=== PATIENT | male | born 1965 | race Caucasian/White ===

== ENCOUNTER 2019-05-12 09:34 | Outpatient (CLI) | payer MEDICAID ==
[2019-05-12 12:21] LABS: CALCIUM 8.2 mg/dL (8.5-10.3); CREATININE 1.1 mg/dL (0.6-1.2)
[2019-05-12 12:31] LABS: HB2 TOTAL 14.9 g/dL; HEMOGLOBIN A1C 0.91 g/dL; HEMOGLOBIN A1C % 7.7 % (4.6-6.2)
[2019-05-15 12:43] LABS: CREATININE,URINE 137.3 mg/dL; PROTEIN/CREATININE RATIO,URINE 0.2 (<=0.2)
== END 2019-05-12 23:59 | disposition home or self-care (01) ==
LOC: LAB.N 09:34
PROVIDERS: ATTEND Family Medicine
DX: E11.9 Type 2 diabetes mellitus without complications (principal); R06.09 Other forms of dyspnea
CPT/HCPCS: 36415; 80048; 82043; 82570; 83036; 83880; 84156

== ENCOUNTER 2019-05-15 10:36 | Outpatient (CLI) | payer MEDICAID ==
--- NOTE | 2019-05-16 03:55 | XRAY Report ---
Reason: LUMBAR RADICULOPATHY Procedure Date: 05/15/2019 Accession Number: [id number] / [id number] Procedure: XRN - Lumbar Spine Complete CPT Code: Final Report FULL RESULT: EXAM: LUMBOSACRAL SPINE RADIOGRAPHY EXAM DATE: 05/15/2019 11:32 AM. CLINICAL HISTORY: LUMBAR RADICULOPATHY. COMPARISONS: KNEE 3 VIEW BILAT 05/15/2019 11:30 AM. TECHNIQUE: 5 views. FINDINGS: Alignment: Normal. No spondylolisthesis or scoliosis. Bones: Five [id number] lumbar vertebral bodies are present. No fractures or bone lesions. Disks: Mild disk height loss is visualized in the mid and upper lumbar spine. Mild endplate sclerosis and osteophytosis is noted. Facets: Mild sclerosis and hypertrophy noted in the lower lumbar facet joints. Sacroiliac Joints: Unremarkable. Soft Tissues: Normal. The visualized bowel gas pattern is normal. IMPRESSION: 1. No evidence of acute pathology in the lumbar spine. 2. Mild multilevel degenerative disk disease primarily in the mid and upper lumbar spine. 3. Moderate lower lumbar facet arthropathy. RADIA
--- NOTE | 2019-05-16 10:46 | XRAY Report ---
Reason: KNEE PAIN Procedure Date: 05/15/2019 Accession Number: [id number] / [id number] Procedure: XRN - Knee 3 View BILAT CPT Code: Final Report FULL RESULT: EXAMS: 1. Right Knee Radiography 2. Left Knee Radiography EXAM DATE:05/15/2019 11:32 AM. CLINICAL HISTORY:KNEE PAIN. COMPARISON: None. TECHNIQUE: 3 views each. FINDINGS: Right Knee: Bones: Normal. No fractures or bone lesions. Joints: Small effusion. Spurring of tibial spines and lateral tibial plateau. Mild narrowing of patellofemoral joint space. Soft Tissues: Normal. No soft tissue swelling. Left Knee: Bones: Normal. No fractures or bone lesions. Joints: Small effusion. Superior patellar spurring. Mild narrowing of medial compartment height. Tibial spine and intercondylar notch spurring. Patellofemoral joint space narrowing. Soft Tissues: Normal. No soft tissue swelling. IMPRESSION: 1. Small bilateral knee joint effusions. 2. Mild left greater than right knee joint degenerative changes. RADIA
== END 2019-05-15 10:37 | disposition home or self-care (01) ==
LOC: DI.N 10:36
PROVIDERS: ATTEND Family Medicine
DX: M51.36 Other intervertebral disc degeneration, lumbar region (principal); M47.816 Spondylosis without myelopathy or radiculopathy, lumbar region; M17.0 Bilateral primary osteoarthritis of knee; M25.462 Effusion, left knee; M25.461 Effusion, right knee
CPT/HCPCS: 72110

== ENCOUNTER 2019-06-02 10:02 | Outpatient (CLI) | payer MEDICAID | END 2019-06-02 23:59 | disposition home or self-care (01) | LOC: LAB.N 10:02 | PROVIDERS: ATTEND Family Medicine | DX: I11.0 Hypertensive heart disease with heart failure (principal); I50.9 Heart failure, unspecified | CPT/HCPCS: 36415; 83880 ==

== ENCOUNTER 2019-06-06 08:00 | Outpatient (CLI) | payer MEDICAID ==
[2019-06-06 17:19] LABS: ALBUMIN 4.1 g/dL (3.2-5.5); ALBUMIN/GLOBULIN RATIO 1.1 (1.0-2.2); BILIRUBIN,TOTAL 0.8 mg/dL (0.2-1.0); CALCIUM 8.9 mg/dL (8.5-10.3); TOTAL PROTEIN 7.7 g/dL (6.7-8.2)
== END 2019-06-06 23:59 | disposition home or self-care (01) ==
LOC: LAB.N 08:00
PROVIDERS: ATTEND Family Medicine
DX: I48.91 Unspecified atrial fibrillation (principal)
CPT/HCPCS: 36415; 80053

== ENCOUNTER 2019-06-30 07:00 | Outpatient (CLI) | payer MEDICAID ==
[2019-06-30 12:55] LABS: HGB - HEMOGLOBIN 15.8 g/dL (14.0-18.0); MEAN CORPUSCULAR HEMOGLOBIN 29.5 pg (27.0-31.0); MEAN CORPUSCULAR HGB CONC 31.8 g/dL (32.0-36.0); MEAN CORPUSCULAR VOLUME 92.9 fL (80.0-94.0); MEAN PLATELET VOLUME 10.5 fL (7.4-11.4); RED BLOOD COUNT 5.35 10^6/uL (4.70-6.10); RED CELL DISTRIBUTION WIDTH 13.6 % (12.0-15.0); WHITE BLOOD COUNT 8.7 x10^3/uL (4.8-10.8)
[2019-06-30 13:21] LABS: CALCIUM 8.8 mg/dL (8.5-10.3)
== END 2019-06-30 23:59 | disposition home or self-care (01) ==
LOC: LAB.WCP 07:00
PROVIDERS: ATTEND Family Medicine
DX: R06.09 Other forms of dyspnea (principal); I50.9 Heart failure, unspecified
CPT/HCPCS: 36415; 80048; 83880; 85027

== ENCOUNTER 2019-08-01 12:55 | Outpatient (CLI) | payer MEDICAID | END 2019-08-01 12:56 | disposition short-term general hospital (02) | LOC: EMS 12:55 | PROVIDERS: ATTEND Surgery | DX: R51 Headache (principal); R55 Syncope and collapse; R09.89 Other specified symptoms and signs involving the circulatory and respiratory systems | CPT/HCPCS: A0425; A0429; A0999 ==

== ENCOUNTER 2019-08-09 08:46 | Outpatient (CLI) | payer MEDICAID ==
[2019-08-09 12:03] LABS: CALCIUM 8.6 mg/dL (8.5-10.3); CREATININE 1.1 mg/dL (0.6-1.2)
== END 2019-08-09 23:59 | disposition home or self-care (01) ==
LOC: LAB.WCP 08:46
PROVIDERS: ATTEND Nurse Practitioner
DX: I48.0 Paroxysmal atrial fibrillation (principal)
CPT/HCPCS: 36415; 80048

== ENCOUNTER 2019-08-15 13:06 | Outpatient (CLI) | payer MEDICAID ==
--- NOTE | 2019-08-15 13:37 | SLEEP CARE CONSULTATION ---
Information from patient questionnaire entered by Laura Vallejo. I have reviewed and concur with the information entered by Laura Vallejo. This document represents the service I personally performed and the decisions made by me, Sahara Andrade MD, [facility]. History of Present Illness Service Date and Time: 08/15/2019 1306 Reason for Visit: New patient, Previously diagnosed sleep apnea Chief Complaint: reports: Other (To see if sleep apnea is the root cause for A- Fib) Duration of Symptoms: 27 years Usual bedtime: 10-11 pm Time it takes to fall asleep: couple of minutes or longer Snores at night: Yes Observed to quit breathing while asleep: Yes Sleeps alone due to snoring: No Number of times waking at night: couple times Reasons for waking at night: reports: Pain, Bathroom Toss, Turn, or Twitch while sleeping: Yes Recalls having dreams: Yes Usually gets out of bed at: 8:30 - 9 am Feels refreshed in the morning: Yes Morning headache: Yes Sleepy or fatigued during the day: Yes Ever fallen asleep while driving: No Takes day naps: Yes Dreams during day naps: Yes Prior sleep studies: Yes Year and Where: 1993 and 2008 in [place], [place] Additional HPI information: I had the pleasure of seeing Mr. Barone today regarding the possibility of him having a sleep disorder. As you know, he is a 53 year old gentleman who was diagnosed with the sleep-disordered breathing at about 21 years and underwent a uvulopalatopharyngoplasty. He reported some improvement afterward. There was no follow up sleep study. Recently, he developed atrial fibrillation. He was cardioverted but it recurred. Now, he is in and out of it. According to his girlfriend, he snores loudly and quits breathing. He feels sleepy during the day. - Parasomnia Symptoms Ever been unable to move upon waking from sleep: No Ever felt weak in the knees when startled or emotional: No Bothered by creepy, crawly, restless sensations in legs: No Problems with memory or concentration: No Subjective Initial [place] Sleepiness Scale score: 12 (in 2019) Past Medical History Past Medical History: reports: Hypertension, Congestive Heart Failure, Diabetes, Arthritis, Gout, Arrythmia, Anxiety, Depression Social History The patient's occupation is a Not Employed. Patient is Single and lives in [place]. Have you smoked in the past 12 months: No Alcohol use: Yes Alcohol amount and frequency: not often Caffeine use: Yes Family History Family history of sleep disordered breathing: Yes Allergies and Home Medications Drug allergies reviewed: Yes Home medication list reviewed: Yes Review of Systems Weight loss over past 5 years: 15 Cardiovascular: reports: high blood pressure, palpitations, chest pain, irregular heart rate or pulse, leg or foot swelling Respiratory: reports: shortness of breath, wheeze, chronic cough Gastrointestinal: denies: heartburn, difficulty swallowing, nausea, vomitting, diarrhea, abdominal pain, other Urinary: denies: incontinence, frequency, urgency, impotence, other Neurological: reports: headaches, gait or balance problems, fainting or unconsciousness Psychiatric: reports: anxiety, depression Ear/Nose/Throat: reports: dry mouth/throat, injury to nose, tonsillectomy Endocrine: reports: sluggishness Musculoskeletal: reports: joint pain, neck pain, back pain, joint swelling, muscle pain or cramping, mobility problems Physical Exam Height: 6 ft 2 in Weight: 325 lb Body Mass Index: 41.7 BMI Classification: Morbidly Obese Neck circumference: 18 Impression and Plan IMPRESSION: 1. Obstructive Sleep Apnea-Hypopnea Syndrome, as previously diagnosed and treated with uvulopalatopharyngoplasty. However, he continues to have symptoms and now also paroxysmal atrial fibrillation. Therefore, obstructive sleep apnea-hypopnea will need to be effectively treated. Narrow oropharynx and obesity are common predisposing factors for obstructive sleep apnea-hypopnea syndrome. Pathophysiology of sleep-disordered breathing was discussed. I recommend proceeding to polysomnography to confirm the diagnosis and to assess severity. If he has significant sleep disordered breathing, a manual CPAP titration study will also be performed to find the optimal treatment pressure. Home sleep apnea test (HSAT) is not appropriate because of underlying cardiac arrhythmia and several other comorbidities. Plan: 1. Schedule polysomnography + manual CPAP titration study 2. Avoid long distance driving or when feeling sleepy. 3. Avoid alcohol, sedative and muscle relaxant around bedtime. 4. Attempt to lose weight. 5. Return in 1 to 2 weeks after the study to discuss results and initiate therapy. Visit Type: In Office Patient Location: Office Other Participants: Spouse/Significant Other Location of Provider: Office Time Spent with Patient (minutes): 15 Provider Statement: I spent 100% of the Face to Face Visit with the patient with greater than 50% spent counseling the patient and coordination of care.
== END 2019-08-15 13:07 | disposition home or self-care (01) ==
LOC: SC 13:06
PROVIDERS: ATTEND Internal Medicine Pulmonary Disease
DX: G47.33 Obstructive sleep apnea (adult) (pediatric) (principal); I48.0 Paroxysmal atrial fibrillation; G47.10 Hypersomnia, unspecified; R06.83 Snoring; G47.8 Other sleep disorders; E11.9 Type 2 diabetes mellitus without complications; I10 Essential (primary) hypertension; E66.01 Morbid (severe) obesity due to excess calories; Z68.41 Body mass index [BMI] 40.0-44.9, adult
CPT/HCPCS: 99203; 99212

== ENCOUNTER 2019-09-06 20:36 | Outpatient (CLI) | payer MEDICAID | END 2019-09-06 20:37 | disposition home or self-care (01) | LOC: SC 20:36 | PROVIDERS: ATTEND Internal Medicine Pulmonary Disease | DX: G47.33 Obstructive sleep apnea (adult) (pediatric) (principal); E66.01 Morbid (severe) obesity due to excess calories; Z68.41 Body mass index [BMI] 40.0-44.9, adult | CPT/HCPCS: 95810 ==

== ENCOUNTER 2019-09-13 10:38 | Outpatient (CLI) | payer MEDICAID ==
[2019-09-13 11:41] VITALS: BP 140/80
--- NOTE | 2019-09-13 11:41 | SLEEP CARE CONSULTATION ---
Information from patient questionnaire entered by Gabrielle Franco. I have reviewed and concur with the information entered by Gabrielle Franco. This document represents the service I personally performed and the decisions made by me, Lizzy Nixon RN, MSN, [employer]. History of Present Illness Service Date and Time: 09/13/2019 1038 Accompanied by: Spouse Initial [place] Sleepiness Scale score: 12 (in 2020) Current [place] Sleepiness Scale score: 7 Additional HPI information: MARLENA MORRISSEY returns with spouse for follow up and results of the recently performed polysomnography. I explained the pathophysiology behind obstructive sleep apnea. We then spent quite a bit of time discussing different treatment options. For mild obstructive sleep apnea, surgery and oral appliance are alternatives to nasal CPAP therapy but in moderate or severe cases, nasal CPAP is the most effective and reliable treatment. I reviewed the impact of weight changes on sleep apnea and strongly recommended losing weight. After some discussion, the patient opted to go with the nasal CPAP therapy. Nasal autoCPAP set at [id number] will be ordered with rationale explained. A manual titration study will be ordered if unable to find optimal pressure with office adjustments. I explained how CPAP machine works with sample devices RespirLime&Tonic Dreamstation and trip.me [id number] and what to expect when using the machine. Using CPAP every night in order to get used to it was emphasized. Patient advised to put CPAP mask on before getting into bed so as not to fall asleep without CPAP. To assist acclimation to CPAP use, it could also be used for a short time during day while reading or watching TV. The patient was instructed to call the CPAP supplier to discuss any mechanical problem that may occur. If the mask given is uncomfortable or is difficult to keep on through the night even with adjustment, contact the CPAP supplier as many will replace with another mask style if notified before 30 days. If snoring or perceives is not getting enough air or too much air from the machine, notify this office. AASM patient education PAP tips reviewed and given to patient. Patient counseled not drink alcohol less than 4 hours before bedtime as it can increase snoring and apnea. Patient was cautioned about risks of drowsy driving until sleepiness symptoms resolve. Patient does not drive. Sleep Study - Results Type of Sleep Study: Polysomnography Prior sleep studies: Yes Year and Where: [facility] 2019 Polysomnography/Home Sleep Study results: The quality of the study is good. The patient had normal sleep efficiency. Despite moderate sleep fragmentation, the sleep architecture was normal as well. Respiratory monitoring showed severe obstructive sleep apnea-hypopnea (AHI = 52.3) associated with frequent arousals, oxyhemoglobin desaturation and moderate hypoxia (matthew oxygen saturation of 74%). Baseline oxygen saturation was normal. The respiratory events occurred independently of sleep stage and body position (supine AHI = 34.5; non-supine = 74.56). Snore was light in intensity. There was no significant periodic leg movement of sleep. Cardiac rhythm was normal sinus rhythm without significant arrhythmia. No abnormal behavior (parasomnia) observed during the night. Allergies and Home Medications Home medication list reviewed: No (lisinopril increased to 10mg, stopped metoprolol started diltiazem) Physical Exam Blood Pressure: 140/80 Heart Rate: 74 O2 Saturation: 98 Height: 6 ft 2 in Weight: 327 lb 12.8 oz Body Mass Index: 42.0 BMI Classification: Morbidly Obese Impression and Plan 1. Obstructive Sleep Apnea-Hypopnea Syndrome, severe, with lowest oxygen saturation of 74%. Obviously this is the cause of the patients symptoms of unrefreshed sleep, and excessive daytime sleepiness. Positive pressure therapy could benefit his atrial fibrillation, hypertension, congestive heart failure. As mentioned above, the patient will be started on nasal autoCPAP therapy with pressure set at 5-15 cmH2 O. An urgent set up will be ordered due to medical history. A manual titration study will be completed if unable to find optimal treatment pressure with office adjustments. Compliance guidelines also reviewed. A copy of compliance guidelines will be given for reference at check out. Because the apnea is more severe non- supine, I instructed to avoid sleeping non supine and elevated his head of bed 30 degrees to reduce apnea risk. * Nasal auto CPAP therapy, pressure at 5-15 cm H2O. * Attempt to lose weight. * Avoid alcohol consumption near bedtime. * Avoid non supine sleep until using CPAP. * The patient is again cautioned about driving until sleepiness completely resolves. * Return one month after CPAP obtained. I will assess response to therapy and compliance at that time. Visit Type: In Office Time Spent with Patient (minutes): 35 Provider Statement: I spent 100% of the Face to Face Visit with the patient with greater than 50% spent counseling the patient and coordination of care.
== END 2019-09-13 10:39 | disposition home or self-care (01) ==
LOC: SC 10:38
PROVIDERS: ATTEND Nurse Practitioner Family
DX: G47.33 Obstructive sleep apnea (adult) (pediatric) (principal); E66.01 Morbid (severe) obesity due to excess calories; Z68.41 Body mass index [BMI] 40.0-44.9, adult
CPT/HCPCS: 99212; 99214

== ENCOUNTER 2019-09-21 14:55 | Outpatient (CLI) | payer MEDICAID | END 2019-09-21 23:59 | disposition home or self-care (01) | LOC: LAB.WCP 14:55 | PROVIDERS: ATTEND Family Medicine | DX: M10.9 Gout, unspecified (principal) | CPT/HCPCS: 36415; 84550 ==

== ENCOUNTER 2020-01-09 12:46 | Outpatient (CLI) | payer MEDICAID ==
--- NOTE | 2020-01-09 13:33 | SLEEP CARE CONSULTATION ---
Information from patient questionnaire entered by Laura Vallejo. I have reviewed and concur with the information entered by Laura Vallejo. This document represents the service I personally performed and the decisions made by , Rachel Golden ARNP. History of Present Illness Service Date and Time: 01/09/2020 1246 Previous diagnosis: Severe, Obstructive Sleep Apnea-Hypopnea Syndrome AHI: 52.3 (in 2019) Reason for follow up: first compliance Equipment type: CPAP Equipment obtained from: Other ([facility]; no supplies recieved yet) Mask style: Full face Backup mask available: Yes (nasal mask) Last cushion change: not changed yet Prior sleep studies: Yes Year and Where: 2019 - [facility] Type of Sleep Study: Polysomnography HPI additional information: MARLENA MORRISSEY was diagnosed to have severe, AHI 52.3, obstructive sleep apnea- hypopnea syndrome and returned today for CPAP therapy first compliance follow- up. CPAP Compliance Data - Data Reviewed with Patient Average duration of nightly device use: 5.7 Compliance rate %: 80 Current pressure setting (cmH2O): 5-15 Humidity settin Average residual AHI: 0.8 Central apnea: 0.5 Obstructive apnea: 0.1 Subjective Patient concerns: reports: condensation in mask/hose (just once, not since), dry mouth, nose, throat (dry mouth, adjusting humidity). denies: aerophagia, mask discomfort, air blowing in eyes, mask leak noise, nasal congestion, epistaxis, other Observed to snore while using device: No Current pressure setting perceived as: comfortable On therapy, patient: denies: sleeping better, awakening more refreshed (feels more tired than he did before starting the CPAP), being more awake and alert during the day, more rested overall, drowsiness while driving (can't drive) Initial [place] Sleepiness Scale score: 12 (in 2019) Current [place] Sleepiness Scale score: 5 Allergies and Home Medications Drug allergies reviewed: Yes (NKDA) Home medication list reviewed: Yes (new beta charley for his blood pressure) Review of Systems Review of systems same as previous: No (heart ablation 2 months ago) Physical Exam Heart Rate: 66 O2 Saturation: 98 Height: 6 ft 2 in Weight: 331 lb Body Mass Index: 42.5 BMI Classification: Morbidly Obese Impression and Plan 1. Obstructive Sleep Apnea-Hypopnea Syndrome, severe, with good treatment compl iance and great apnea control. On CPAP therapy, the patient is not yet feeling like he is getting better sleep and feel more tired while using the CPAP. He recently has a heart ablation for atrial fibrillation which he feels is still affecting him. He is willing to keep using the CPAP therapy to see if this will improve. I will adjust his pressure to 5-8 cm H2O to accomadate those pressures his is using with the median at 5.5 cm H2O and 95% at 7.4 cm H2O. He has had some oral dryness for which he has increased his humidity, he is using the full reservoir nightly. Oral dryness can be reduced by adjusting humidity setting higher or heated hose lower or by adjusting both settings. Printed instructions given on how to change humidity and heated hose settings with rationale explaining why to change. Patient advised that chronic oral dryness can affect dental health and advised to follow up with dentist. In addition, there are oral dryness products that can be used to reduce dryness such as Biotene products, Dry mouth rinse and Xylomelts. Patient to discuss best option with dentist. Patient's apnea severity and rationale for treatment to reduce apnea, improve sleep quality and reduce cardiovascular and cerebrovascular events was reviewed. I also reviewed the benefit of consistent device use of CPAP for hypertension, CHF, and arrhythmia. * Change autoCPAP pressure to 5-8 cmH2O * Notify me if snoring with mask or feeling that the pressure is too much or too little * Attempt to lose weight * Call this office if any problems using CPAP * Return for follow up in 1-2 months, or sooner if concerns arise Counseling Topics: Spare mask, Weight loss health impact Visit Type: In Office Time Spent with Patient (minutes): 22 Provider Statement: I spent 100% of the Face to Face Visit with the patient with greater than 50% spent counseling the patient and coordination of care.
== END 2020-01-09 12:47 | disposition home or self-care (01) ==
LOC: SC 12:46
PROVIDERS: ATTEND Nurse Practitioner Family
DX: G47.33 Obstructive sleep apnea (adult) (pediatric) (principal); E66.01 Morbid (severe) obesity due to excess calories; Z68.41 Body mass index [BMI] 40.0-44.9, adult
CPT/HCPCS: 99212

== ENCOUNTER 2020-02-13 15:50 | Outpatient (CLI) | payer MEDICAID ==
--- NOTE | 2020-02-13 16:51 | SLEEP CARE CONSULTATION ---
Information from patient questionnaire entered by Deja Cobb. I have reviewed and concur with the information entered by Deja Cobb. This document represents the service I personally performed and the decisions made by me, Rachel Golden ARNP. History of Present Illness Service Date and Time: 02/13/2020 1550 Previous diagnosis: Severe, Obstructive Sleep Apnea-Hypopnea Syndrome AHI: 52.3 Reason for follow up: one month Equipment type: CPAP Equipment obtained from: Other ([facility]; getting supplies as needed) Mask style: Full face Backup mask available: No (will keep old mask once it is replaced) Last cushion change: 6 weeks Prior sleep studies: Yes Year and Where: [facility] 2019 HPI additional information: MARLENA MORRISSEY was diagnosed to have severe, AHI 52.3, obstructive sleep apnea- hypopnea syndrome and returned today for CPAP therapy one month pressure change follow-up. Sleep Study - Results Prior sleep studies: Yes Year and Where: [facility] 2019 CPAP Compliance Data - Data Reviewed with Patient Average duration of nightly device use: 5 h 38 min Compliance rate %: 80 Current pressure setting (cmH2O): 5-8 Humidity settin Average residual AHI: 0.6 Subjective Missed days of use due to: reports: other (power outages) Patient concerns: reports: aerophagia (started a little bit for last 2 weeks), dry mouth, nose, throat. denies: mask discomfort, air blowing in eyes, mask leak noise, condensation in mask/hose, nasal congestion, epistaxis, other Observed to snore while using device: No Current pressure setting perceived as: comfortable On therapy, patient: reports: other (He doesn't feel different since starting the machine therapy). denies: sleeping better, awakening more refreshed, being more awake and alert during the day, more rested overall Initial [place] Sleepiness Scale score: 12 (in 2020) Current [place] Sleepiness Scale score: 13 Allergies and Home Medications Drug allergies reviewed: Yes (NKDA) Home medication list reviewed: Yes (no changes) Review of Systems Review of systems same as previous: Yes (no changes) Physical Exam Heart Rate: 95 O2 Saturation: 99 Height: 6 ft 2 in Weight: 338 lb Body Mass Index: 43.4 BMI Classification: Morbidly Obese Impression and Plan 1. Obstructive Sleep Apnea-Hypopnea Syndrome, severe, with good treatment compliance and excellent apnea control. On CPAP therapy, the patient does not feel he is getting better sleep quality or is more rested overall. He does not feel different. He is averaging 5.75 hours nightly, states he can't lay down more than 6 hours at a time due to back pain. He was encouraged to try to increase time to 6.5 hours nightly to improve his rested feeling overall. He voiced understanding. He states he gets transitory oral dryness in the mornings. Oral dryness can be reduced by adjusting humidity setting higher or heated hose lower or by adjusting both settings. Patient states that he has adjust the humidity up and down without any improvement. He is currently at the setting of 4 on his ResMed machine. I encouraged him to increase humidity and then the heated hose to reduce chance of condensation in hose/mask. Patient advised that chronic oral dryness can affect dental health. Patient has also developed some aerophagia in the last 2 weeks. To reduce symptoms of aerophagia, the CPAP pressure will be reduced to 5-7 cmH2O. Patient advised to contact me if this does not reduce symptoms or if pressure change uncomfortable. He voiced understanding. Patient's apnea severity and rationale for treatment to reduce apnea, improve sleep quality and reduce cardiovascular and cerebrovascular events was reviewed. I also reviewed the benefit of consistent device use of CPAP for hypertension, arrhythmia, and congestive heart failure. * Change autoCPAP pressure to 5-7 cmH2O * Notify me if snoring with mask or feeling that the pressure is too much or too little * Attempt to lose weight * Call this office if any problems using CPAP * Return for follow up in 1-2 months, or sooner if concerns arise Counseling Topics: Spare mask, Weight loss health impact Visit Type: In Office Time Spent with Patient (minutes): 20 Provider Statement: I spent 100% of the Face to Face Visit with the patient with greater than 50% spent counseling the patient and coordination of care.
== END 2020-02-13 15:51 | disposition home or self-care (01) ==
LOC: SC 15:50
PROVIDERS: ATTEND Nurse Practitioner Family
DX: G47.33 Obstructive sleep apnea (adult) (pediatric) (principal); E66.01 Morbid (severe) obesity due to excess calories; Z68.41 Body mass index [BMI] 40.0-44.9, adult
CPT/HCPCS: 99212; 99213

== ENCOUNTER 2020-03-07 08:00 | Outpatient (CLI) | payer MEDICAID ==
[2020-03-07 18:59] LABS: ALBUMIN 4.2 g/dL (3.2-5.5); ALBUMIN/GLOBULIN RATIO 1.4 (1.0-2.2); BILIRUBIN,TOTAL 0.6 mg/dL (0.2-1.0); CALCIUM 8.9 mg/dL (8.5-10.3); CREATININE 1.4 mg/dL (0.6-1.2); TOTAL PROTEIN 7.3 g/dL (6.7-8.2)
== END 2020-03-07 23:59 | disposition home or self-care (01) ==
LOC: LAB.WCP 08:00
PROVIDERS: ATTEND Internal Medicine Cardiovascular Disease
DX: I48.0 Paroxysmal atrial fibrillation (principal)
CPT/HCPCS: 36415; 80053; 84443

== ENCOUNTER 2020-03-07 12:00 | Outpatient (CLI) | payer MEDICAID ==
--- NOTE | 2020-03-07 13:02 | XRAY Report ---
PROCEDURE: Thoracic Spine 3 View INDICATIONS: BACK PAIN, THORACIC REGION TECHNIQUE: 3 views of the thoracic spine were acquired. COMPARISON: None. FINDINGS: Bones: No fractures or dislocations. No suspicious bony lesions. Visualized ribs are intact. Multil evel mild endplate osteophyte formation. Mild diffuse thoracic kyphosis. Soft tissues: No paraverteb ral stripe thickening. IMPRESSION: Multilevel degenerative disc disease. No acute fracture. No osseous lesion. If symptoms and/or clinic al suspicion for pathology continue, further assessment with repeat plain films, or advanced imaging (e.g., CT, MRI, or bone scan) is recommended for further assessment. Reviewed by: Li Orozco MD on 03/07/2020 1:01 PM PST Approved by: Li Orozco MD on 03/07/2020 1:01 PM PST Station ID: [id number]
== END 2020-03-07 23:59 | disposition home or self-care (01) ==
LOC: DI.N 12:00
PROVIDERS: ATTEND Internal Medicine
DX: M51.36 Other intervertebral disc degeneration, lumbar region (principal)

== ENCOUNTER 2020-03-12 15:35 | Outpatient (CLI) | payer MEDICAID ==
--- NOTE | 2020-03-12 16:07 | SLEEP CARE CONSULTATION ---
Information from patient questionnaire entered by Deja Cobb. I have reviewed and concur with the information entered by Deja Cobb. This document represents the service I personally performed and the decisions made by me, Rachel Golden ARNP. History of Present Illness Service Date and Time: 03/12/2020 1535 Previous diagnosis: Severe, Obstructive Sleep Apnea-Hypopnea Syndrome AHI: 52.3 (in 2019) Reason for follow up: one month (followup - pressure change) Equipment type: CPAP Equipment obtained from: Other ([facility]; no supplies recieved yet) Mask style: Full face Backup mask available: No (will keep old mask when replaced) Last cushion change: none yet Prior sleep studies: Yes Year and Where: 2019 - [facility] Type of Sleep Study: Polysomnography HPI additional information: MARLENA MORRISSEY was diagnosed to have severe, AHI 52.3, obstructive sleep apnea- hypopnea syndrome and returned today for CPAP therapy one month pressure change follow-up. CPAP Compliance Data - Data Reviewed with Patient Average duration of nightly device use: 6 h 30 min Compliance rate %: 93 Current pressure setting (cmH2O): 5-7 Average residual AHI: 0.9 Average large leak: 7.2 L/min Subjective Missed days of use due to: reports: other Patient concerns: reports: dry mouth, nose, throat (has improved). denies: aerophagia, mask discomfort, air blowing in eyes, mask leak noise, condensation in mask/hose, nasal congestion, epistaxis, other Observed to snore while using device: No Current pressure setting perceived as: comfortable On therapy, patient: reports: other (He has congestive heart failure and does not feel like he is resting better than before). denies: sleeping better, awakening more refreshed, being more awake and alert during the day, more rested overall, drowsiness while driving (he doesn't drive due to bad eyesight) Initial Lincoln Sleepiness Scale score: 12 (in 2019) Current [place] Sleepiness Scale score: 9 Allergies and Home Medications Drug allergies reviewed: Yes (NKDA) Home medication list reviewed: Yes (no changes) Review of Systems Review of systems same as previous: Yes (no changes) Physical Exam Heart Rate: 64 O2 Saturation: 96 Height: 6 ft 2 in Weight: 336 lb Body Mass Index: 43.1 BMI Classification: Morbidly Obese Impression and Plan 1. Obstructive Sleep Apnea-Hypopnea Syndrome, severe, with good treatment compliance and excellent apnea control. On CPAP therapy, the patient states he does not feel he is getting better sleep quality and is feeling more rested overall because he still wakes up throughout the night due to back and knee pain. His Lincoln was 9 today which is a reduction from 12 when he was first evaluated. This shows he is getting some good improvement of his daytime sleepiness. He has a history of congestive heart failure and his chronic pain issues which he feels contribute more to his fatigue. I think he has been getting a good response from his CPAP therapy but continues to obtain adverse effects from his chronic comorbid conditions. I will keep pressure at current setting and we will follow up with him in 3 months. He is to call with any pressure concerns as needed. I encouraged him to try to reduce his weight since this will improve his overall health and reduce apneas. Patient's current BMI is 43.1. Obesity increases the risk of apnea, CPAP pressure requirements and overall health risks especially cardiovascular and diabetes. Thus patient is advised to lose weight. Patient's apnea severity and rationale for treatment to reduce apnea, improve sleep quality and reduce cardiovascular and cerebrovascular events was reviewed. I also reviewed the benefit of consistent device use of CPAP for hypertension, arrhythmia, and CHF. * Continue auto CPAP pressure at 5-7 cmH2O * Notify me if snoring with mask or feeling that the pressure is too much or too little * Attempt to lose weight * Call this office if any problems using CPAP * Return for follow up in 3 months, or sooner if concerns arise Counseling Topics: Spare mask, Weight loss health impact Visit Type: In Office Time Spent with Patient (minutes): 18 Provider Statement: I spent 100% of the Face to Face Visit with the patient with greater than 50% spent counseling the patient and coordination of care.
== END 2020-03-12 15:36 | disposition home or self-care (01) ==
LOC: SC 15:35
PROVIDERS: ATTEND Nurse Practitioner Family
DX: G47.33 Obstructive sleep apnea (adult) (pediatric) (principal); E66.01 Morbid (severe) obesity due to excess calories; Z68.41 Body mass index [BMI] 40.0-44.9, adult
CPT/HCPCS: 99212; 99213

== ENCOUNTER 2020-03-18 09:35 | Outpatient (CLI) | payer MEDICAID ==
[2020-03-18 13:54] LABS: CHOL/HDL RATIO 3.3 (<5.0); CHOLESTEROL 117 mg/dL; HDL CHOLESTEROL 36 mg/dL; HEMOGLOBIN A1c% 6.6 % (4.27-6.07); LDL CHOLESTEROL,CALCULATED 44 mg/dL; LDL/HDL RATIO 1.2 (<3.6); URIC ACID 5.6 mg/dL (2.6-7.2); VLDL CHOLESTEROL 37 mg/dL
[2020-03-18 14:02] LABS: CREATININE,URINE 152.5 mg/dL
[2020-03-18 14:10] LABS: MICROALBUMIN,URINE < 0.2 mg/dL (0-300.0)
== END 2020-03-18 09:36 | disposition home or self-care (01) ==
LOC: LAB.N 09:35
PROVIDERS: ATTEND Internal Medicine
DX: E11.9 Type 2 diabetes mellitus without complications (principal); M10.9 Gout, unspecified
CPT/HCPCS: 36415; 80061; 82043; 82570; 83036; 83721; 84550

== ENCOUNTER 2020-05-24 12:17 | Outpatient (CLI) | payer MEDICAID ==
[2020-05-24 18:20] LABS: RHEUMATOID FACTOR NEGATIVE (Negative)
[2020-05-27 13:01] LABS: ANA SCREEN NEGATIVE (NEGATIVE)
== END 2020-05-24 23:59 | disposition home or self-care (01) ==
LOC: LAB.WCP 12:17
PROVIDERS: ATTEND Internal Medicine
DX: M25.50 Pain in unspecified joint (principal)
CPT/HCPCS: 36415; 85651; 86038; 86140; 86200; 86430

== ENCOUNTER 2020-05-24 12:59 | Outpatient (CLI) | payer MEDICAID ==
--- NOTE | 2020-05-24 16:23 | XRAY Report ---
PROCEDURE: Lumbar Spine 2 View INDICATIONS: ACUTE LOWER BACK PAIN TECHNIQUE: 2 views of the lumbar spine were acquired. COMPARISON: X-ray lumbar spine 04/16/2019 FINDINGS: Bones: 5 [id number] vertebrae are present. There is multilevel trace retrolisthesis throughout the lumbar spine. Mild to moderate disc space narrowing is present L4-5, L5-S1. Moderate foraminal n arrowing is also noted L4-5, L5-S1. No vertebral body compression fractures. No suspicious bony lesi ons. Soft tissues: Overlying bowel gas pattern is normal. No suspicious soft tissue calcifications. IMPRESSION: Degenerative changes at L4-5, L5-S1. Reviewed by: Abeba Flores MD on 05/24/2020 4:21 PM PDT Approved by: Abeba Flores MD on 05/24/2020 4:21 PM PDT Station ID: [id number]
== END 2020-05-24 13:00 | disposition home or self-care (01) ==
LOC: DI.N 12:59
PROVIDERS: ATTEND Internal Medicine
DX: M43.16 Spondylolisthesis, lumbar region (principal); M48.061 Spinal stenosis, lumbar region without neurogenic claudication; M48.07 Spinal stenosis, lumbosacral region; M25.50 Pain in unspecified joint
CPT/HCPCS: 36415; 85651; 86038; 86140; 86200; 86430

== ENCOUNTER 2020-06-06 10:22 | Outpatient (CLI) | payer MEDICAID ==
--- NOTE | 2020-06-06 10:50 | SLEEP CARE CONSULTATION ---
Information from patient questionnaire entered by Laura Vallejo. I have reviewed and concur with the information entered by Laura Vallejo. This document represents the service I personally performed and the decisions made by , Rachel Golden ARNP. History of Present Illness Service Date and Time: 06/06/2020 1022 Previous diagnosis: Severe, Obstructive Sleep Apnea-Hypopnea Syndrome AHI: 52.3 (in 2019) Reason for follow up: three month Equipment type: CPAP Equipment obtained from: Other ([facility]; got extra mask) Mask style: Full face Backup mask available: No (will keep old mask when replaced) Last cushion change: 2 months Prior sleep studies: Yes Year and Where: 2019 - [facility] Type of Sleep Study: Polysomnography HPI additional information: MARLENA MORRISSEY was diagnosed to have severe, AHI 52.3, obstructive sleep apnea- hypopnea syndrome and returned today for CPAP therapy three month follow-up. CPAP Compliance Data - Data Reviewed with Patient Average duration of nightly device use: 6 hr 59 min Compliance rate %: 91 (90 days) Current pressure setting (cmH2O): 5-7 Humidity settin Average residual AHI: 1.3 Subjective Patient concerns: denies: aerophagia, mask discomfort, air blowing in eyes, mask leak noise, condensation in mask/hose, nasal congestion, dry mouth, nose, throat, epistaxis, other Observed to snore while using device: No Current pressure setting perceived as: comfortable On therapy, patient: reports: other (has CHF and is tired all the time). denies: sleeping better, awakening more refreshed, being more awake and alert during the day, more rested overall Initial [place] Sleepiness Scale score: 12 (in 2019) Current [place] Sleepiness Scale score: 9 Allergies and Home Medications Home medication list reviewed: Yes (new depression medication, stopped cymbalta; started metoprolol 25 mg) Review of Systems Review of systems same as previous: Yes (no changes) Physical Exam Heart Rate: 87 O2 Saturation: 98 Height: 6 ft 2 in Weight: 336 lb Body Mass Index: 43.1 BMI Classification: Morbidly Obese Impression and Plan 1. Obstructive Sleep Apnea-Hypopnea Syndrome, severe, with good treatment compliance and good apnea control. [place] /24 today which is an improvement from his initial 02/28. Patient has congestive heart failure and states he is still always tired and cannot tell if his sleep has improved. He feels his fatigue is more due to his other comorbities. He is comfortable with CPAP use, pressure is comfortable and he is not having any mask issues at this time. Patient's apnea severity and rationale for treatment to reduce apnea, improve sleep quality and reduce cardiovascular and cerebrovascular events was reviewed. I also reviewed the benefit of consistent device use of CPAP for hypertension, cardiac disease (CHF), and arrhythmia. * Continue autoCPAP pressure at 5-7 cmH2O * Notify me if snoring with mask or feeling that the pressure is too much or too little * Attempt to lose weight * Call this office if any problems using CPAP * Return for follow up in 6 months, or sooner if concerns arise Counseling Topics: Spare mask, Weight loss health impact Visit Type: In Office Time Spent with Patient (minutes): 14 Provider Statement: I spent 100% of the Face to Face Visit with the patient with greater than 50% spent counseling the patient and coordination of care.
--- OUTSIDE RECORDS SUMMARY | 2020-06-12 00:45 | EXTERNAL MEDICAL SUMMARY RPT | Continuity of Care Document ---
:1965 Demographics Phone Unavailable Preferred Language German Marital Status Unknown Orthodox Affiliation Unknown Race Unknown Ethnic Group Unknown Author Organization [place] Address [address] [phone] Phone Care Team Providers Name Role Phone Mcneill Unavailable Unavailable Problems date description facility [id number] Paroxysmal atrial fibrillation [facility] Social History date description facility [id number]
== END 2020-06-06 10:23 | disposition home or self-care (01) ==
LOC: SC 10:22
PROVIDERS: ATTEND Nurse Practitioner Family
DX: G47.33 Obstructive sleep apnea (adult) (pediatric) (principal); E66.01 Morbid (severe) obesity due to excess calories; Z68.41 Body mass index [BMI] 40.0-44.9, adult
CPT/HCPCS: 99212

== ENCOUNTER 2020-07-10 07:00 | Outpatient (CLI) | payer MEDICAID ==
--- NOTE | 2020-07-10 19:22 | XRAY Report ---
PROCEDURE: Lumbar Spine 2 View INDICATIONS: DEGENERATIVE JOINT DISEASE TECHNIQUE: 2 views of the lumbar spine were acquired. COMPARISON: 05/24/2020 FINDINGS: Bones: 5 [id number] vertebrae are present. Mild disc space narrowing and moderate facet joints hypertrophy and again noted at L4-5, L5-S1 without change from the prior. Soft tissues: Overlying bowel gas pattern is normal. No suspicious soft tissue calcifications. IMPRESSION: Lower lumbar spine degenerative disc disease and arthropathy, stable from prior Reviewed by: Curt Valencia MD on 07/10/2020 6:21 PM AKDT Approved by: Curt Valencia MD on 07/10/2020 6:21 PM AKDT Station ID: [id number]
== END 2020-07-10 23:59 | disposition home or self-care (01) ==
LOC: DI.N 07:00
PROVIDERS: ATTEND Physician Assistant Medical
DX: M47.816 Spondylosis without myelopathy or radiculopathy, lumbar region (principal); M51.36 Other intervertebral disc degeneration, lumbar region

== ENCOUNTER 2020-08-15 10:10 | Outpatient (CLI) | payer MEDICAID ==
[2020-08-15 12:14] LABS: THYROID STIMULATING HORMONE 1.64 uIU/mL (0.34-5.60)
[2020-08-15 12:36] LABS: ALBUMIN 4.1 g/dL (3.2-5.5); ALBUMIN/GLOBULIN RATIO 1.3 (1.0-2.2); BILIRUBIN,TOTAL 0.5 mg/dL (0.2-1.0); CREATININE 1.4 mg/dL (0.6-1.2); POTASSIUM 3.9 mmol/L (3.5-5.0); TOTAL PROTEIN 7.3 g/dL (6.7-8.2)
== END 2020-08-15 10:11 | disposition home or self-care (01) ==
LOC: LAB.N 10:10
PROVIDERS: ATTEND Internal Medicine Cardiovascular Disease
DX: I48.0 Paroxysmal atrial fibrillation (principal)
CPT/HCPCS: 36415; 80053; 84443

== ENCOUNTER 2020-08-20 12:37 | Outpatient (CLI) | payer MEDICAID ==
--- NOTE | 2020-08-20 16:46 | XRAY Report ---
PROCEDURE: Knee 4 View BILAT INDICATIONS: OSTEOARTHRITIS, BILATERAL KNEES TECHNIQUE: 4 views of the bilateral knee(s) were acquired. COMPARISON: X-ray knee 05/15/2019 FINDINGS: Bones: No fractures or dislocations. No suspicious bony lesions. Moderate bilateral medial compartm ent narrowing, progressive compared to prior exam. Periarticular osteophytes are present. There is mi ld bilateral patellofemoral compartment narrowing with patellar osteophytes. No erosions. Soft tissues: Minimal to mild bilateral effusions. No suspicious soft tissue calcifications. IMPRESSION: Medial and patellofemoral narrowing, progressive most consistent with arthritis. Reviewed by: Abeba Flores MD on 08/20/2020 4:45 PM PDT Approved by: Abeba Flores MD on 08/20/2020 4:45 PM PDT Station ID: [id number]
== END 2020-08-20 23:59 | disposition home or self-care (01) ==
LOC: DI.N 12:37
PROVIDERS: ATTEND Physician Assistant
DX: M17.0 Bilateral primary osteoarthritis of knee (principal)

== ENCOUNTER 2020-10-03 11:45 | Outpatient (CLI) | payer MEDICAID ==
[2020-10-03 18:19] LABS: ALBUMIN 3.8 g/dL (3.2-5.5); ALBUMIN/GLOBULIN RATIO 1.1 (1.0-2.2); BILIRUBIN,TOTAL 0.7 mg/dL (0.2-1.0); CREATININE 1.2 mg/dL (0.6-1.2); TOTAL PROTEIN 7.2 g/dL (6.7-8.2)
[2020-10-03 18:25] LABS: CREATININE,URINE 226.5 mg/dL; MICROALBUM/CREATININE RATIO,UR 3.1 ug/mg (<30.0); MICROALBUMIN,URINE 0.7 mg/dL (0-300.0)
[2020-10-03 18:40] LABS: CALCIUM 8.8 mg/dL (8.5-10.3); POTASSIUM 3.9 mmol/L (3.5-5.0)
[2020-10-03 18:57] LABS: BASOPHILS % (AUTO) 0.3 %; EOSINOPHILS # (AUTO) 0.1 10^3/uL (0.0-0.7); EOSINOPHILS % (AUTO) 2.1 %; HCT - HEMATOCRIT 46.9 % (42.0-52.0); HGB - HEMOGLOBIN 14.9 g/dL (14.0-18.0); LYMPHOCYTES # (AUTO) 1.6 10^3/uL (1.5-3.5); LYMPHOCYTES % (AUTO) 25.7 %; MEAN CORPUSCULAR HEMOGLOBIN 30.3 pg (27.0-31.0); MEAN CORPUSCULAR HGB CONC 31.8 g/dL (32.0-36.0); MEAN CORPUSCULAR VOLUME 95.5 fL (80.0-94.0); MEAN PLATELET VOLUME 10.2 fL (7.4-11.4); MONOCYTES # (AUTO) 0.6 10^3/uL (0.0-1.0); MONOCYTES % (AUTO) 10.2 %; NEUTROPHILS # (AUTO) 3.7 10^3/uL (1.5-6.6); NEUTROPHILS % (AUTO) 61.5 %; PLT - PLATELET COUNT 169 10^3/uL (130-450); RED BLOOD COUNT 4.91 10^6/uL (4.70-6.10); RED CELL DISTRIBUTION WIDTH 13.4 % (12.0-15.0); WHITE BLOOD COUNT 6.1 x10^3/uL (4.8-10.8)
[2020-10-03 21:08] LABS: ESTIMATED AVERAGE GLUCOSE 166 mg/dL (70-100); HEMOGLOBIN A1c% 7.4 % (4.27-6.07)
== END 2020-10-03 11:46 | disposition home or self-care (01) ==
LOC: LAB.N 11:45
PROVIDERS: ATTEND Internal Medicine
DX: I10 Essential (primary) hypertension (principal); E11.40 Type 2 diabetes mellitus with diabetic neuropathy, unspecified
CPT/HCPCS: 36415; 80053; 82043; 82570; 83036; 85025

== ENCOUNTER 2021-01-08 12:40 | Outpatient (CLI) | payer MEDICAID | END 2021-01-08 12:41 | disposition home or self-care (01) | LOC: RT 12:40 | PROVIDERS: ATTEND Internal Medicine | DX: Z91.89 Other specified personal risk factors, not elsewhere classified (principal) | CPT/HCPCS: 94010; 94729 ==

== ENCOUNTER 2021-01-27 10:45 | Outpatient (CLI) | payer MEDICAID ==
[2021-01-27 13:20] LABS: ESTIMATED AVERAGE GLUCOSE 160 mg/dL (70-100); HEMOGLOBIN A1c% 7.2 % (4.27-6.07)
[2021-01-27 13:26] LABS: BUN - BLOOD UREA NITROGEN 18 mg/dL (6-20); CALCIUM 8.5 mg/dL (8.5-10.3); CARBON DIOXIDE - CO2 28 mmol/L (21-32); CHLORIDE 103 mmol/L (101-111); CHOL/HDL RATIO 3.7 (<5.0); CHOLESTEROL 121 mg/dL; CREATININE 1.3 mg/dL (0.6-1.2); GFR - MDRD 58 (>89); GLUCOSE 178 mg/dL (70-100); HDL CHOLESTEROL 33 mg/dL; LDL CHOLESTEROL,CALCULATED 40 mg/dL; LDL/HDL RATIO 1.2 (<3.6); POTASSIUM 3.6 mmol/L (3.5-5.0); SODIUM 142 mmol/L (135-145); TRIGLYCERIDES 238 mg/dL; URIC ACID 6.5 mg/dL (2.6-7.2); VLDL CHOLESTEROL 48 mg/dL
== END 2021-01-27 10:46 | disposition home or self-care (01) ==
LOC: LAB.N 10:45
PROVIDERS: ATTEND Internal Medicine
DX: E11.42 Type 2 diabetes mellitus with diabetic polyneuropathy (principal); Z87.442 Personal history of urinary calculi
CPT/HCPCS: 36415; 80048; 80061; 83036; 83721; 84550

== ENCOUNTER 2021-03-24 08:00 | Outpatient (CLI) | payer MEDICAID ==
--- NOTE | 2021-03-24 17:22 | XRAY Report ---
PROCEDURE: Wrist 3 View RT INDICATIONS: WRIST PAIN AND NUMBNESS TECHNIQUE: 3 views of the wrist were acquired. COMPARISON: None. FINDINGS: Bones: No fractures or dislocations. No suspicious bony lesions. Minimal degenerative change at the first CMC joint. Soft tissues: No suspicious soft tissue calcifications. IMPRESSION: Minimal degenerative change at the first CMC joint. Reviewed by: Maicol Tinajero MD on 03/24/2021 5:21 PM PST Approved by: Maicol Tinajero MD on 03/24/2021 5:21 PM [facility] Station ID: [id number]
== END 2021-03-24 23:59 ==
LOC: DI.WOS 08:00
PROVIDERS: ATTEND Physician Assistant
DX: M18.11 Unilateral primary osteoarthritis of first carpometacarpal joint, right hand (principal)

== ENCOUNTER 2021-06-27 10:45 | Outpatient (CLI) | payer MEDICAID ==
[2021-06-27 18:17] LABS: BASOPHILS % (AUTO) 0.3 %; EOSINOPHILS # (AUTO) 0.1 10^3/uL (0.0-0.7); EOSINOPHILS % (AUTO) 2.1 %; HCT - HEMATOCRIT 43.8 % (42.0-52.0); HGB - HEMOGLOBIN 13.8 g/dL (14.0-18.0); LYMPHOCYTES # (AUTO) 1.7 10^3/uL (1.5-3.5); MEAN CORPUSCULAR HEMOGLOBIN 30.5 pg (27.0-31.0); MEAN CORPUSCULAR HGB CONC 31.5 g/dL (32.0-36.0); MEAN CORPUSCULAR VOLUME 96.7 fL (80.0-94.0); MEAN PLATELET VOLUME 10.1 fL (7.4-11.4); MONOCYTES # (AUTO) 0.7 10^3/uL (0.0-1.0); NEUTROPHILS # (AUTO) 3.6 10^3/uL (1.5-6.6); NEUTROPHILS % (AUTO) 59.4 %; PLT - PLATELET COUNT 191 10^3/uL (130-450); RED BLOOD COUNT 4.53 10^6/uL (4.70-6.10); RED CELL DISTRIBUTION WIDTH 14.1 % (12.0-15.0); WHITE BLOOD COUNT 6.1 x10^3/uL (4.8-10.8)
[2021-06-27 18:33] LABS: ALBUMIN 3.6 g/dL (3.2-5.5); ALBUMIN/GLOBULIN RATIO 1.1 (1.0-2.2); ALKALINE PHOSPHATASE 47 IU/L (42-121); ALT ALANINE AMINOTRANSFERASE 37 IU/L (10-60); AST ASPARTATE AMINOTRANSFERASE 24 IU/L (10-42); BILIRUBIN,TOTAL 0.6 mg/dL (0.2-1.0); BUN - BLOOD UREA NITROGEN 18 mg/dL (6-20); CALCIUM 8.6 mg/dL (8.5-10.3); CARBON DIOXIDE - CO2 26 mmol/L (21-32); CHLORIDE 105 mmol/L (101-111); CHOL/HDL RATIO 3.5 (<5.0); CHOLESTEROL 109 mg/dL; CREATININE 1.1 mg/dL (0.6-1.2); GFR - MDRD 70 (>89); GLUCOSE 164 mg/dL (70-100); HDL CHOLESTEROL 31 mg/dL; LDL CHOLESTEROL,CALCULATED 38 mg/dL; LDL/HDL RATIO 1.2 (<3.6); POTASSIUM 3.6 mmol/L (3.5-5.0); SODIUM 140 mmol/L (135-145); TOTAL PROTEIN 6.8 g/dL (6.7-8.2); TRIGLYCERIDES 199 mg/dL; VLDL CHOLESTEROL 40 mg/dL
[2021-06-27 18:36] LABS: CREATININE,URINE 230.3 mg/dL; MICROALBUM/CREATININE RATIO,UR 18.7 ug/mg (<30.0); MICROALBUMIN,URINE 4.3 mg/dL (0-300.0)
[2021-06-27 18:43] LABS: THYROID STIMULATING HORMONE 1.16 uIU/mL (0.34-5.60)
[2021-06-27 19:23] LABS: ESTIMATED AVERAGE GLUCOSE 157 mg/dL (70-100); HEMOGLOBIN A1c% 7.1 % (4.27-6.07)
== END 2021-06-27 10:46 | disposition home or self-care (01) ==
LOC: LAB.N 10:45
PROVIDERS: ATTEND Internal Medicine
DX: E11.42 Type 2 diabetes mellitus with diabetic polyneuropathy (principal); I48.91 Unspecified atrial fibrillation; J06.9 Acute upper respiratory infection, unspecified
CPT/HCPCS: 36415; 80053; 80061; 81599; 82043; 82570; 83036; 83721; 84443; 85025; 86769

== ENCOUNTER 2021-07-18 14:12 | Outpatient (CLI) | payer MEDICAID ==
--- NOTE | 2021-07-18 16:39 | Ultrasound Report ---
PROCEDURE: Carotid Doppler Complete INDICATIONS: TRANSIENT VISUAL IMPAIRMENT TECHNIQUE: Color and pulse Doppler interrogation was performed of both carotid systems, with image documentation and velocity measurements. COMPARISON: None. FINDINGS: Right side: Brachial blood pressure: 154/70 mm Hg. Common carotid artery peak systolic velocity: 126 cm/sec. Internal carotid artery peak systolic velocity: 80 cm/sec. Internal carotid artery end diastolic velocity: 23 cm/sec. External carotid artery peak systolic velocity: 102 cm/sec. ICA/CCA peak systolic ratio: 0.7 . Vasquez scale imaging description: Moderate plaque at the bifurcation Percent internal carotid artery stenosis: Less than 50% . Vertebral artery: Flow direction is antegrade. Left side: Brachial blood pressure: 161/72 mm Hg. Common carotid artery peak systolic velocity: 125 cm/sec. Internal carotid artery peak systolic velocity: 92 cm/sec. Internal carotid artery end diastolic velocity: 12 cm/sec. External carotid artery peak systolic velocity: 54 cm/sec. ICA/CCA peak systolic ratio: 0.7 . Vasquez scale imaging description: Moderate plaque at the bifurcation Percent internal carotid artery stenosis: Less than 50% . Vertebral artery: Flow direction is antegrade. IMPRESSION: Less than 50% stenosis of the internal carotid arteries bilaterally. The estimate of stenosis included in the report of the imaging study was calculated using the NASCET method Reviewed by: Abeba Flores MD on 07/18/2021 4:38 PM PDT Approved by: Abeba Flores MD on 07/18/2021 4:38 PM PDT Station ID: [id number]
== END 2021-07-18 14:13 | disposition home or self-care (01) ==
LOC: DI 14:12
PROVIDERS: ATTEND Internal Medicine
DX: I65.23 Occlusion and stenosis of bilateral carotid arteries (principal); H53.129 Transient visual loss, unspecified eye
CPT/HCPCS: 93880

== ENCOUNTER 2021-08-01 10:07 | Outpatient (CLI) | payer MEDICAID ==
[2021-08-01 12:34] LABS: CHOL/HDL RATIO 3.3 (<5.0); CHOLESTEROL 117 mg/dL; HDL CHOLESTEROL 35 mg/dL; LDL CHOLESTEROL,CALCULATED 48 mg/dL; LDL/HDL RATIO 1.4 (<3.6); TRIGLYCERIDES 172 mg/dL; VLDL CHOLESTEROL 34 mg/dL
== END 2021-08-01 10:08 | disposition home or self-care (01) ==
LOC: LAB.N 10:07
PROVIDERS: ATTEND Physician Assistant Medical
DX: E78.5 Hyperlipidemia, unspecified (principal)
CPT/HCPCS: 36415; 80061; 83721

== ENCOUNTER 2021-11-06 10:41 | Outpatient (CLI) | payer MEDICAID ==
[2021-11-06 17:58] LABS: CALCIUM 9.3 mg/dL (8.5-10.3); CREATININE 1.1 mg/dL (0.6-1.2); POTASSIUM 4.1 mmol/L (3.5-5.0)
== END 2021-11-06 10:42 | disposition home or self-care (01) ==
LOC: LAB.N 10:41
PROVIDERS: ATTEND Orthopaedic Surgery
DX: I50.22 Chronic systolic (congestive) heart failure (principal)
CPT/HCPCS: 36415; 80048

== ENCOUNTER 2022-03-20 11:42 | Outpatient (CLI) | payer MEDICAID ==
[2022-03-20 12:16] LABS: BASOPHILS % (AUTO) 0.5 %; EOSINOPHILS # (AUTO) 0.2 10^3/uL (0.0-0.7); EOSINOPHILS % (AUTO) 2.6 %; HCT - HEMATOCRIT 46.3 % (42.0-52.0); HGB - HEMOGLOBIN 14.3 g/dL (14.0-18.0); LYMPHOCYTES # (AUTO) 1.3 10^3/uL (1.5-3.5); LYMPHOCYTES % (AUTO) 22.1 %; MEAN CORPUSCULAR HEMOGLOBIN 29.4 pg (27.0-31.0); MEAN CORPUSCULAR HGB CONC 30.9 g/dL (32.0-36.0); MEAN CORPUSCULAR VOLUME 95.1 fL (80.0-94.0); MEAN PLATELET VOLUME 9.3 fL (7.4-11.4); MONOCYTES # (AUTO) 0.7 10^3/uL (0.0-1.0); MONOCYTES % (AUTO) 11.2 %; NEUTROPHILS # (AUTO) 3.9 10^3/uL (1.5-6.6); NEUTROPHILS % (AUTO) 63.4 %; PLT - PLATELET COUNT 153 10^3/uL (130-450); RED BLOOD COUNT 4.87 10^6/uL (4.70-6.10); RED CELL DISTRIBUTION WIDTH 15.4 % (12.0-15.0); WHITE BLOOD COUNT 6.1 x10^3/uL (4.8-10.8)
[2022-03-20 12:39] LABS: MICROALBUM/CREATININE RATIO,UR 10.3 ug/mg (<30.0); MICROALBUMIN,URINE 2.3 mg/dL (0-300.0)
[2022-03-20 12:43] LABS: ALBUMIN 3.9 g/dL (3.2-5.5); ALBUMIN/GLOBULIN RATIO 1.3 (1.0-2.2); ALKALINE PHOSPHATASE 37 IU/L (42-121); ALT ALANINE AMINOTRANSFERASE 27 IU/L (10-60); AST ASPARTATE AMINOTRANSFERASE 16 IU/L (10-42); BILIRUBIN,TOTAL 0.6 mg/dL (0.2-1.0); BUN - BLOOD UREA NITROGEN 17 mg/dL (6-20); CALCIUM 8.6 mg/dL (8.5-10.3); CARBON DIOXIDE - CO2 26 mmol/L (21-32); CHLORIDE 105 mmol/L (101-111); CHOL/HDL RATIO 2.9 (<5.0); CHOLESTEROL 113 mg/dL; CREATININE 1.2 mg/dL (0.6-1.2); GFR - MDRD 63 (>89); GLUCOSE 129 mg/dL (70-100); HDL CHOLESTEROL 39 mg/dL; LDL CHOLESTEROL,CALCULATED 47 mg/dL; LDL/HDL RATIO 1.2 (<3.6); SODIUM 139 mmol/L (135-145); TOTAL PROTEIN 6.8 g/dL (6.7-8.2); TRIGLYCERIDES 136 mg/dL; URIC ACID 6.7 mg/dL (2.6-7.2); VLDL CHOLESTEROL 27 mg/dL
[2022-03-20 13:01] LABS: THYROID STIMULATING HORMONE 1.29 uIU/mL (0.34-5.60)
[2022-03-20 14:03] LABS: ESTIMATED AVERAGE GLUCOSE 160 mg/dL (70-100); HEMOGLOBIN A1c% 7.2 % (4.27-6.07)
--- NOTE | 2022-03-20 15:10 | XRAY Report ---
PROCEDURE: Ribs w/PA Chest LT INDICATIONS: RIB PAIN LEFT SIDED TECHNIQUE: 2 views of the left ribs were acquired, along with a single view chest. COMPARISON: None FINDINGS: Surgical changes and devices: Atrial appendage clip is noted. Bones and chest wall: No acute displaced rib fracture. No suspicious bony lesions. Overlying soft t issues appear unremarkable. Lungs and pleura: No pleural effusions or pneumothorax. Lungs appear clear. Mediastinum: Mediastinal contours appear normal. Heart size is normal. IMPRESSION: No acute displaced rib fracture. No pleural effusion or pneumothorax. Reviewed by: Elvis Gray MD on 03/20/2022 3:09 PM PST Approved by: Elvis Gray MD on 03/20/2022 3:09 PM PST Station ID: [id number]
== END 2022-03-20 11:43 | disposition home or self-care (01) ==
LOC: DI 11:42
PROVIDERS: ATTEND Internal Medicine
DX: R07.81 Pleurodynia (principal); E11.40 Type 2 diabetes mellitus with diabetic neuropathy, unspecified; Z12.5 Encounter for screening for malignant neoplasm of prostate; I48.91 Unspecified atrial fibrillation; M10.9 Gout, unspecified; I42.9 Cardiomyopathy, unspecified
CPT/HCPCS: 36415; 80053; 80061; 82043; 82570; 83036; 83721; 84153; 84443; 84550; 85025

== ENCOUNTER 2022-04-09 11:17 | Outpatient (CLI) | payer MEDICAID | END 2022-04-09 11:18 | disposition home or self-care (01) | LOC: RT 11:17 | PROVIDERS: ATTEND Physician Assistant | DX: I48.0 Paroxysmal atrial fibrillation (principal); Z98.890 Other specified postprocedural states; Z86.79 Personal history of other diseases of the circulatory system | CPT/HCPCS: 93005 ==

== ENCOUNTER 2022-09-29 11:02 | Outpatient (CLI) | payer MEDICAID ==
[2022-09-29 11:52] LABS: BASOPHILS % (AUTO) 0.2 %; EOSINOPHILS # (AUTO) 0.1 10^3/uL (0.0-0.7); EOSINOPHILS % (AUTO) 1.8 %; HCT - HEMATOCRIT 47.1 % (42.0-52.0); HGB - HEMOGLOBIN 14.8 g/dL (14.0-18.0); LYMPHOCYTES # (AUTO) 1.3 10^3/uL (1.5-3.5); LYMPHOCYTES % (AUTO) 21.2 %; MEAN CORPUSCULAR HEMOGLOBIN 29.3 pg (27.0-31.0); MEAN CORPUSCULAR HGB CONC 31.4 g/dL (32.0-36.0); MEAN CORPUSCULAR VOLUME 93.3 fL (80.0-94.0); MEAN PLATELET VOLUME 9.6 fL (7.4-11.4); MONOCYTES # (AUTO) 0.6 10^3/uL (0.0-1.0); MONOCYTES % (AUTO) 9.7 %; NEUTROPHILS # (AUTO) 4.1 10^3/uL (1.5-6.6); NEUTROPHILS % (AUTO) 66.9 %; PLT - PLATELET COUNT 142 10^3/uL (130-450); RED BLOOD COUNT 5.05 10^6/uL (4.70-6.10); RED CELL DISTRIBUTION WIDTH 14.2 % (12.0-15.0); WHITE BLOOD COUNT 6.1 x10^3/uL (4.8-10.8)
[2022-09-29 12:46] LABS: ALBUMIN 3.8 g/dL (3.2-5.5); ALBUMIN/GLOBULIN RATIO 1.5 (1.0-2.2); BILIRUBIN,TOTAL 0.6 mg/dL (0.2-1.0); CALCIUM 8.8 mg/dL (8.5-10.3); CREATININE 1.2 mg/dL (0.6-1.3); POTASSIUM 3.9 mmol/L (3.5-4.5); TOTAL PROTEIN 6.4 g/dL (6.4-8.9); URIC ACID 6.6 mg/dL (4.4-7.6)
[2022-09-29 13:45] LABS: ESTIMATED AVERAGE GLUCOSE 140 mg/dL (70-100); HEMOGLOBIN A1c% 6.5 % (4.27-6.07)
--- NOTE | 2022-09-29 16:00 | XRAY Report ---
PROCEDURE: Hips 2V BILAT INDICATIONS: CHRONIC HIP PAIN TECHNIQUE: 2 views of the right hip and left hip were acquired. COMPARISON: None. FINDINGS: Bones: No fractures or dislocations. No suspicious bony lesions. Mild bilateral hip osseous hypertr ophy compatible with mild osteoarthritis. Soft tissues: No suspicious soft tissue calcifications or masses. IMPRESSION: Mild bilateral hip osteoarthritis. Reviewed by: Celia Gomes MD, PhD on 09/29/2022 3:59 PM PDT Approved by: Celia Gomes MD, PhD on 09/29/2022 3:59 PM PDT Station ID: [id number]
== END 2022-09-29 11:03 | disposition home or self-care (01) ==
LOC: LAB 11:02
PROVIDERS: ATTEND Internal Medicine
DX: E11.42 Type 2 diabetes mellitus with diabetic polyneuropathy (principal); M10.9 Gout, unspecified; M16.0 Bilateral primary osteoarthritis of hip
CPT/HCPCS: 36415; 80053; 83036; 84550; 85025

== ENCOUNTER 2022-11-06 06:09 | Day surgery (SDC) | payer MEDICAID ==
[2022-11-06] MEDS ORDERED: LACTATED RINGERS 1,000 ML IV ONE ×2 (06:14→08:10)
--- NOTE | 2022-11-06 07:12 | ANESTHESIA ---
Pre-Anesthesia VS, & Labs - Diagnosis family hx of colon CA - Procedure colonoscopy Vital Signs: Temp Pulse Resp BP Pulse Ox O2 Flow Rate 36.0 C L 63 16 169/85 H 99 11/06/22 06:13 11/06/22 06:13 11/06/22 06:13 11/06/22 06:13 11/06/22 06:13 Height: 6 ft 2 in Weight (kg): 144 kg Body Mass Index: 40.7 BMI Classification: Morbidly Obese - NPO >8 hours - Lab Results Current Lab Results: Laboratory Tests 11/06/22 06:38: POC Whole Bld Glucose 114 H Home Medications and Allergies Home Medications: Ambulatory Orders Atorvastatin Calcium 20 mg PO DAILY 11/02/22 Bumetanide [Bumex] 1 mg PO DAILY 11/02/22 Losartan Potassium 100 mg PO DAILY 11/02/22 Meloxicam 15 mg PO DAILY 11/02/22 Potassium Chloride [Klor-Con 10] 1 tab PO DAILY 11/02/22 Dapagliflozin Propanediol [Farxiga] 5 mg PO 1-2XD 11/06/22 Metoprolol Succinate 100 mg PO BID 11/06/22 Gabapentin [Neurontin] 300 mg PO HS 12/10/20 Metformin HCl [Metformin ER Osmotic] 1,500 mg PO DAILY 12/10/20 Rivaroxaban [Xarelto] 20 mg PO DAILY 12/10/20 buPROPion HCL [Bupropion Xl] 150 mg PO DAILY 12/10/20 hydrALAZINE [Apresoline] 25 mg PO TID 12/10/20 Atorvastatin Calcium 20 mg PO DAILY 11/02/22 Bumetanide [Bumex] 1 mg PO DAILY 11/02/22 Losartan Potassium 100 mg PO DAILY 11/02/22 Meloxicam 15 mg PO DAILY 11/02/22 Potassium Chloride [Klor-Con 10] 1 tab PO DAILY 11/02/22 Dapagliflozin Propanediol [Farxiga] 5 mg PO 1-2XD 11/06/22 Metoprolol Succinate 100 mg PO BID 11/06/22 Allergies/Adverse Reactions: Allergies Allergy/AdvReac Type Severity Reaction Status Date / Time No Known Drug Allergies Allergy Verified 11/05/22 13:01 Anes History & Medical History - Anesthetic History Anesthesia Complications: reports: No previous complications Family history of Anesthesia Complications: Denies Family history of Malignant Hyperthermia: Denies - Medical History Cardiovascular: reports: Congestive heart failure, Hypertension, Atrial fibrillation Pulmonary: reports: Sleep apnea, CPAP use Gastrointestinal: reports: Crohn's disease Urinary: reports: Renal insuffiency, Kidney stones Neuro: reports: Peripheral neuropathy Musculoskeletal: reports: Osteoarthritis, Rheumatoid arthritis, Gout, Chronic back pain Endocrine/Autoimmune: reports: Type 2 diabetes Skin: reports: Rosacea Smoking Status: Never smoker - Surgical History General: reports: Colonoscopy Eyes Ears Nose Throat (EENT): reports: Other Cardiothoracic: reports: Other Orthopedic: reports: Arthroscopic surgery Exam General: Alert, Oriented x3, Cooperative Dental: Loose/Frag Mouth Openin Fingerbreadth Neck Mobility: Reduced Mallampati classification: III Thyromental Distance: less than 4 cm Respiratory: Lungs clear Cardiovascular: Regular rate Plan Anesthesia Type: General Consent for Procedure(s) Verified and Reviewed: Yes Code Status: Attempt Resuscitation ASA classification: 3-Severe systemic disease Is this case an emergency?: No
[2022-11-06] MEDS ORDERED: PROPOFOL 500 MG/50 ML 500 MG/50 ML VIAL ONE (07:23)
[2022-11-06] MEDS ORDERED: LIDOCAINE-MPF 2% 5 ML VIAL ONE (07:23)
[2022-11-06] MEDS ORDERED: KETAMINE 200 MG/20 ML VIAL ONE (07:24)
--- NOTE | 2022-11-06 07:27 | HISTORY & PHYSICAL EXAMINATION ---
Chief Complaint - Chief Complaint Chief Complaint: here for colonoscopy History of Present Illness - History Obtained From Records Reviewed: yes History obtained from: pt Exam Limitations: none - History of Present Illness HPI Comment/Other: mother from colon cancer. he has no gi problems History - Past Medical History Cardiovascular: reports: Congestive heart failure, Hypertension, Atrial fibrillation Respiratory: reports: Sleep apnea, CPAP use Neuro: reports: Peripheral neuropathy Endocrine/Autoimmune: reports: Type 2 diabetes GI: reports: Crohn's disease : reports: Renal insuffiency, Kidney stones Psych: reports: Depression Musculoskeletal: reports: Osteoarthritis, Rheumatoid arthritis, Gout, Chronic ba ck pain Derm: reports: Rosacea MRSA Hx?: No - Past Surgical History General: reports: Colonoscopy Ortho: reports: Arthroscopic surgery Cardiovascular: reports: Other HEENT: reports: Other Meds/Allgy - Home Medications Home Medications: Ambulatory Orders Medication Instructions Recorded Confirmed Gabapentin [Neurontin] 300 mg PO HS 12/10/20 11/06/22 Metformin HCl [Metformin ER 1,500 mg PO DAILY 12/10/20 11/06/22 Osmotic] Rivaroxaban [Xarelto] 20 mg PO DAILY 12/10/20 11/06/22 buPROPion HCL [Bupropion Xl] 150 mg PO DAILY 12/10/20 11/06/22 hydrALAZINE [Apresoline] 25 mg PO TID 12/10/20 11/06/22 Atorvastatin Calcium 20 mg PO DAILY 11/02/22 11/06/22 Bumetanide [Bumex] 1 mg PO DAILY 11/02/22 11/06/22 Losartan Potassium 100 mg PO DAILY 11/02/22 11/06/22 Meloxicam 15 mg PO DAILY 11/02/22 11/06/22 Potassium Chloride [Klor-Con 10] 1 tab PO DAILY 11/02/22 11/06/22 Dapagliflozin Propanediol [Farxiga] 5 mg PO 1-2XD 11/06/22 11/06/22 Metoprolol Succinate 100 mg PO BID 11/06/22 11/06/22 - Allergies Allergies/Adverse Reactions: Allergies Allergy/AdvReac Type Severity Reaction Status Date / Time No Known Drug Allergies Allergy Verified 11/05/22 13:01 Review of Systems - Other Findings Other Findings: 10 pt ros as above otherwise unremarkable Exam - Vital Signs Vital Signs: Vital Signs x48h Temp Pulse Resp BP Pulse Ox 11/06/22 06:13 36.0 C L 63 16 169/85 H 99 - Physical Exam General Appearance: positive: No acute distress, Alert Eyes Bilateral: positive: PERRL, EOMI Neck: positive: No JVD Respiratory: positive: No respiratory distress, Breath sounds nml Cardiovascular: positive: Regular rate & rhythm Abdomen: positive: Non-tender Neurologic/Psychiatric: positive: Oriented x3 Conclusion/Plan - Problem List (1) Colon cancer screening Conclusion/Plan: plan colonoscopy. parq held and consent obtained fhx mother colon ca
[2022-11-06] MEDS ORDERED: MIDAZOLAM 2 MG/2 ML VIAL ONE (07:31)
[2022-11-06] MEDS ORDERED: PROPOFOL 200 MG/20 ML VIAL IVP ONE (07:31)
[2022-11-06 08:38] VITALS: BP 143/76; O2SAT 95
--- NOTE | 2022-11-06 14:16 | ANESTHESIA POST OP EVALUATION ---
Anesthesia Post Eval - Post Anesthesia Eval Vitals: Last Vital Signs Temp 36.2 C L 11/06/22 08:10 Pulse 56 L 11/06/22 08:30 Resp 16 11/06/22 08:30 BP 143/76 H 11/06/22 08:30 Pulse Ox 95 11/06/22 08:30 O2 Flow Rate CV Function Including HR & BP: Stable Pain Control: Satisfactory Nausea & Vomiting: Negative Mental Status: Baseline Respiratory Status: Airway Patent Hydration Status: Satisfactory Anesthesia Complications: None
== END 2022-11-06 06:10 | disposition home or self-care (01) ==
LOC: SDS 06:09
PROVIDERS: ATTEND Surgery
PROC: 0DBL8ZX Excision of Transverse Colon, Via Natural or Artificial Opening Endoscopic, Diagnostic (ICD-10-PCS; principal; 2022-11-06 07:30)
DX: Z12.11 Encounter for screening for malignant neoplasm of colon (principal); D12.3 Benign neoplasm of transverse colon; K50.90 Crohn's disease, unspecified, without complications; Z80.0 Family history of malignant neoplasm of digestive organs; I11.0 Hypertensive heart disease with heart failure; I50.9 Heart failure, unspecified; G47.30 Sleep apnea, unspecified; E11.42 Type 2 diabetes mellitus with diabetic polyneuropathy; K57.30 Diverticulosis of large intestine without perforation or abscess without bleeding; E66.01 Morbid (severe) obesity due to excess calories; Z68.41 Body mass index [BMI] 40.0-44.9, adult
CPT/HCPCS: 45380; 45385; J3490; J7120

== ENCOUNTER 2022-11-16 11:41 | Outpatient (CLI) | payer MEDICAID ==
[2022-11-16 18:17] LABS: CREATININE 1.2 mg/dL (0.6-1.3); POTASSIUM 3.7 mmol/L (3.5-4.5)
== END 2022-11-16 11:42 | disposition home or self-care (01) ==
LOC: LAB.N 11:41
PROVIDERS: ATTEND Internal Medicine Cardiovascular Disease
DX: I48.0 Paroxysmal atrial fibrillation (principal)
CPT/HCPCS: 36415; 80048

== ENCOUNTER 2022-12-31 10:29 | Outpatient (CLI) | payer MEDICAID ==
[2022-12-31 18:00] LABS: BASOPHILS % (AUTO) 0.3 %; EOSINOPHILS # (AUTO) 0.1 10^3/uL (0.0-0.7); EOSINOPHILS % (AUTO) 2.1 %; HCT - HEMATOCRIT 44.3 % (42.0-52.0); HGB - HEMOGLOBIN 14.1 g/dL (14.0-18.0); LYMPHOCYTES # (AUTO) 1.4 10^3/uL (1.5-3.5); LYMPHOCYTES % (AUTO) 21.3 %; MEAN CORPUSCULAR HEMOGLOBIN 29.6 pg (27.0-31.0); MEAN CORPUSCULAR HGB CONC 31.8 g/dL (32.0-36.0); MEAN CORPUSCULAR VOLUME 92.9 fL (80.0-94.0); MONOCYTES # (AUTO) 0.6 10^3/uL (0.0-1.0); MONOCYTES % (AUTO) 9.7 %; NEUTROPHILS # (AUTO) 4.4 10^3/uL (1.5-6.6); NEUTROPHILS % (AUTO) 66.4 %; PLT - PLATELET COUNT 156 10^3/uL (130-450); RED BLOOD COUNT 4.77 10^6/uL (4.70-6.10); RED CELL DISTRIBUTION WIDTH 13.7 % (12.0-15.0); WHITE BLOOD COUNT 6.6 x10^3/uL (4.8-10.8)
[2022-12-31 18:16] LABS: ALBUMIN 3.9 g/dL (3.2-5.5); ALBUMIN/GLOBULIN RATIO 1.6 (1.0-2.2); ALKALINE PHOSPHATASE 52 IU/L (42-121); ALT ALANINE AMINOTRANSFERASE 21 IU/L (10-60); AST ASPARTATE AMINOTRANSFERASE 14 IU/L (10-42); BILIRUBIN,TOTAL 0.7 mg/dL (0.2-1.0); BUN - BLOOD UREA NITROGEN 14 mg/dL (6-20); CALCIUM 8.6 mg/dL (8.5-10.3); CARBON DIOXIDE - CO2 30 mmol/L (21-32); CHLORIDE 109 mmol/L (101-111); CHOL/HDL RATIO 2.8 (<5.0); CHOLESTEROL 101 mg/dL; CREATININE 1.1 mg/dL (0.6-1.3); GFR - MDRD 69 (>89); GLUCOSE 107 mg/dL (74-104); HDL CHOLESTEROL 36 mg/dL; LDL CHOLESTEROL,CALCULATED 41 mg/dL; LDL/HDL RATIO 1.1 (<3.6); POTASSIUM 3.8 mmol/L (3.5-4.5); SODIUM 143 mmol/L (135-145); TOTAL PROTEIN 6.4 g/dL (6.4-8.9); TRIGLYCERIDES 121 mg/dL (48-352); URIC ACID 5.7 mg/dL (4.4-7.6); VLDL CHOLESTEROL 24 mg/dL
[2022-12-31 18:28] LABS: CREATININE,URINE 166.4 mg/dL; MICROALBUM/CREATININE RATIO,UR 5.4 ug/mg (<30.0); MICROALBUMIN,URINE 0.9 mg/dL
[2022-12-31 18:29] LABS: THYROID STIMULATING HORMONE 0.04 uIU/mL (0.34-5.60)
[2022-12-31 20:19] LABS: ESTIMATED AVERAGE GLUCOSE 123 mg/dL (70-100); HEMOGLOBIN A1c% 5.9 % (4.27-6.07)
== END 2022-12-31 10:30 | disposition home or self-care (01) ==
LOC: LAB.N 10:29
PROVIDERS: ATTEND Internal Medicine
DX: I10 Essential (primary) hypertension (principal); E11.42 Type 2 diabetes mellitus with diabetic polyneuropathy; Z12.5 Encounter for screening for malignant neoplasm of prostate; I48.91 Unspecified atrial fibrillation; M10.9 Gout, unspecified
CPT/HCPCS: 36415; 80053; 80061; 82043; 82570; 83036; 83721; 84153; 84443; 84550; 85025

== ENCOUNTER 2023-01-02 10:48 | Outpatient (CLI) | payer MEDICAID ==
[2023-01-03 01:03] LABS: THYROID STIMULATING HORMONE 0.04 uIU/mL (0.34-5.60)
== END 2023-01-02 10:49 | disposition home or self-care (01) ==
LOC: LAB.N 10:48
PROVIDERS: ATTEND Internal Medicine
DX: R94.6 Abnormal results of thyroid function studies (principal)
CPT/HCPCS: 36415; 81599; 83519; 84439; 84443; 84481

== ENCOUNTER 2023-01-26 12:38 | Outpatient (CLI) | payer MEDICAID ==
--- NOTE | 2023-01-26 15:37 | Ultrasound Report ---
PROCEDURE: Head or Neck Soft Tissue INDICATIONS: LOW TSH TECHNIQUE: Real-time scanning was performed of the thyroid gland, with image documentation. COMPARISON: None FINDINGS: Right: Thyroid lobe measures 5.5 x 2.6 x 1.7 cm, and is mildly heterogeneous in echotexture. Left: Thyroid lobe measures 4.9 x 1.7 x 1.7 cm, and is mildly heterogeneous in echotexture. Isthmus: 5 mm thick. Nodule number: One Location: Right midpole Size: 1.6 x 1.1 x 1.7 cm. Composition: Solid (2 points). Echogenicity: Hypoechoic (2 points). Shape: wider than tall (0 points). Margins: Smooth (0 points). Echogenic foci: Macrocalcification (1 point). Total points: 5 ACR TI-RADS category: TI-RADS 4: Moderately suspicious. Nodule number: Two Location: Right inferior pole Size: 1.9 x 1.5 x 1.3 cm. Composition: Mixed cystic and solid (1 point). Echogenicity: Hypoechoic (2 points). Shape: wider than tall (0 points). Margins: Ill-defined (0 points). Echogenic foci: None (0 points). Total points: 3 ACR TI-RADS category: TI-RADS 3: Mildly suspicious. Nodule number: Three Location: Left inferior pole Size: 1.6 x 1.4 x 1.5 cm. Composition: Solid (2 points). Echogenicity: Hypoechoic (2 points). Shape: wider than tall (0 points). Margins: Smooth (0 points). Echogenic foci: None (0 points). Total points: 4 ACR TI-RADS category: TI-RADS 4: Moderately suspicious. Nodule number: Four Location: Isthmus Size: 1.0 x 0.8 x 0.8 cm. Composition: Solid (2 points). Echogenicity: Hypoechoic (2 points). Shape: wider than tall (0 points). Margins: Smooth (0 points). Echogenic foci: Macrocalcification (1 point). Total points: 5 ACR TI-RADS category: TI-RADS 4: Moderately suspicious. IMPRESSION: Multinodular thyroid. Nodules #1 in 3 meet size criteria for biopsy. Remaining solid nodules should b e followed per guidelines below. ACR TI-RADS definitions and recommendations: TI-RADS 1 (benign): 0 points. FNA not needed. TI-RADS 2 (not suspicious): 2 points. FNA not needed. TI-RADS 3 (mildly suspicious): 3 points. "FNA if 2.5 cm or larger, follow up if 1.5 cm or larger (at 1, 3, and 5 years). TI-RADS 4 (moderately suspicious): 4-6 points. "FNA if 1.5 cm or larger, follow up if 1 cm or larger (at 1, 2, 3, and 5 years). TI-RADS 5 (highly suspicious): 7 points or more. "FNA if 1 cm or larger, follow up if 0.5 cm or larger (every year for 5 years). Reviewed by: Adithya Linares on 01/26/2023 3:36 PM PST Approved by: Adithya Linares on 01/26/2023 3:36 PM PST Station ID: [id number]
== END 2023-01-26 12:39 | disposition home or self-care (01) ==
LOC: DI 12:38
PROVIDERS: ATTEND Internal Medicine
DX: E04.2 Nontoxic multinodular goiter (principal)

== ENCOUNTER 2023-02-18 09:47 | Outpatient (CLI) | payer MEDICAID ==
[2023-02-18] MEDS ORDERED: LIDOCAINE-MPF 1% 5 ML VIAL ONE (10:04)
[2023-02-18] MEDS ORDERED: LIDOCAINE-MPF 1% 5 ML VIAL TD ONE (11:39)
--- NOTE | 2023-02-18 12:46 | Ultrasound Report ---
PROCEDURE: FNA Bx w/US Gdn 1st Les INDICATIONS: THYROID NODULE TECHNIQUE: The indications, alternatives, benefits, risks, and complications of the procedure were explained to the patient. Written informed consent was obtained and placed in the chart. The area of interest wa s examined sonographically and a site was chosen for ultrasound guided percutaneous sampling. The sk in was prepared and draped in the usual fashion, and anesthetized with 1% lidocaine infiltrated from the skin down to the lesion. Multiple passes were then performed, with contents emptied into an appr [facility] pathology specimen container. A bandage was applied to the area of access at completion of t he study. COMPARISON: None. FINDINGS: Location(s) of lesion(s) sampled: Upper to mid pole right thyroid lobe nodule Formoso: 25 gauge hypodermic needles. Number of passes: 6 Medications: 1% lidocaine for local anaesthesia. Complications: None. Location(s) of lesion(s) sampled: Inferior left thyroid lobe nodule. Formoso: 25 gauge hypodermic needles. Number of passes: 6 Medications: 1% lidocaine for local anaesthesia. Complications: None. IMPRESSION: Successful ultrasound-guided bilateral thyroid nodule fine needle aspiration, with cytology results p ending. Reviewed by: Francis Encinas MD on 02/18/2023 12:45 PM PST Approved by: Francis Encinas MD on 02/18/2023 12:45 PM PST Station ID: [id number]
== END 2023-02-18 09:48 | disposition home or self-care (01) ==
LOC: DI 09:47
PROVIDERS: ATTEND Internal Medicine
DX: E04.2 Nontoxic multinodular goiter (principal); G47.33 Obstructive sleep apnea (adult) (pediatric); E66.01 Morbid (severe) obesity due to excess calories; Z68.41 Body mass index [BMI] 40.0-44.9, adult
CPT/HCPCS: 10005; 99212; 99213

== ENCOUNTER 2023-02-18 13:15 | Outpatient (CLI) | payer MEDICAID ==
--- NOTE | 2023-02-18 14:44 | Sleep Patient Instructions ---
Sleep Center Visit Summary - Patient Visit Information Reason for Visit: Annual visit - Patient Instructions Additional Instructions: You will continue with CPAP therapy with pressure set at 5-7 cmH2O. A supply prescription will be updated with your DME. We encourage you to continue to try to lose weight. Please follow up with the sleep care office in 1 year. - Clinic Information Contact: [facility] [address] [place] [address] [email or web address] T: [phone]
[2023-02-18 14:48] VITALS: BP 157/78; O2SAT 97
--- NOTE | 2023-02-18 14:48 | SLEEP CARE CONSULTATION ---
Information from patient questionnaire entered by Zandra Staton. I have reviewed and concur with the information entered by Zandra Staton. This document represents the service I personally performed and the decisions made by , Rachel Golden ARNP. History of Present Illness Service Date and Time: 02/18/2023 1315 Previous diagnosis: Severe, Obstructive Sleep Apnea-Hypopnea Syndrome AHI: 52.3 (in 2019) Reason for follow up: annual (LAST SEEN 02/2022) Equipment type: CPAP (RESMED Airsense 10; s/u 11/2019) Equipment obtained from: Other ([facility]; getting supplies) Mask style: Full face Backup mask available: Yes Last cushion change: 2 months ago Prior sleep studies: Yes Year and Where: 2019 - [facility] Type of Sleep Study: Polysomnography HPI additional information: MARLENA MORRISSEY was diagnosed to have severe, AHI 52.3, obstructive sleep apnea- hypopnea syndrome and returned today for CPAP therapy annual follow-up. Sleep Study - Results Type of Sleep Study: Polysomnography Prior sleep studies: Yes Year and Where: 2019 - [facility] CPAP Compliance Data - Data Reviewed with Patient Average duration of nightly device use: 6 HRS 39 MINS Compliance rate %: 94 (02/16/2022-02/15/2023; 350/365 days used) Current pressure setting (cmH2O): 5-7 Average residual AHI: 1.1 Central apnea: 0.1 Obstructive apnea: 0.3 Average large leak: 1.5 L/min Subjective Missed days of use due to: reports: travel (hunting), other (in hospital for [facility]) Patient concerns: denies: aerophagia, mask discomfort, air blowing in eyes, mask leak noise, condensation in mask/hose, nasal congestion, dry mouth, nose, throat, epistaxis Observed to snore while using device: No Current pressure setting perceived as: comfortable On therapy, patient: reports: sleeping better, more rested overall. denies: drowsiness while driving (he does not drive) Initial Wilson Sleepiness Scale score: 12 (in 2019) Current Wilson Sleepiness Scale score: 7 (02/18/23) Allergies and Home Medications Known drug allergies: No Drug allergies reviewed: Yes Home medication list reviewed: Yes (no changes) Allergy and home medication list: Allergies No Known Drug Allergies Allergy (Verified 02/17/23 11:21) Review of Systems Review of systems same as previous: No (Hy[facility]lations; FNA thyroid) Physical Exam Vital signs obtained and entered by: ZANDRA Alexis MA Blood Pressure: 157/78 (LEFT ARM) Cuff size: regular Heart Rate: 58 O2 Saturation: 97 Height: 6 ft 2 in Weight: 315 lb 6.4 oz Weight change since last visit: 26 lb loss Body Mass Index: 40.4 BMI Classification: Morbidly Obese Impression and Plan 1. Obstructive Sleep Apnea-Hypopnea Syndrome, severe, with good treatment compliance and good apnea control. On CPAP therapy, the patient has better sleep quality and is more rested overall. Patient has significant improvement of their sleep apnea and is satisfied with current CPAP therapy. Patient denies problems with oral dryness, nasal congestion, epistaxis, skin irritation or aerophagia. Patient's apnea severity and rationale for treatment to reduce apnea, improve sleep quality and reduce cardiovascular and cerebrovascular events was reviewed. I also reviewed the benefit of consistent device use of CPAP for hypertension, cardiac disease (CHF) and arrhythmia. 2. Obesity, unspecified. Currently patients BMI is 40.4. Obesity increases the risk of apnea, CPAP pressure requirements and overall health risks especially cardiovascular and diabetes. Thus patient is advised to lose weight. * Continue auto CPAP pressure at 5-7 cmH2O * Update supply prescription * Notify me if snoring with mask or feeling that the pressure is too much or too little * Attempt to lose weight * Call this office if any problems using CPAP * Return for follow up in 1 year, or sooner if concerns arise Counseling Topics: Spare mask, Weight loss health impact Prescriptions: Device supplies Follow up with Sleep Care in: 1 year Visit Type: In Office Time Spent with Patient (minutes): 20 Provider Statement: I spent 100% of the Face to Face Visit with the patient with greater than 50% spent counseling the patient and coordination of care.
== END 2023-02-18 13:16 | disposition home or self-care (01) ==
LOC: SC 13:15
PROVIDERS: ATTEND Nurse Practitioner Family
DX: G47.33 Obstructive sleep apnea (adult) (pediatric) (principal); E66.01 Morbid (severe) obesity due to excess calories; Z68.41 Body mass index [BMI] 40.0-44.9, adult
CPT/HCPCS: 99212; 99213

== ENCOUNTER 2023-04-01 10:15 | Outpatient (CLI) | payer MEDICAID ==
[2023-04-01 10:44] LABS: CALCIUM 8.9 mg/dL (8.5-10.3); CREATININE 1.3 mg/dL (0.6-1.3); POTASSIUM 4.2 mmol/L (3.5-4.5)
[2023-04-01 11:02] LABS: THYROID STIMULATING HORMONE 1.08 uIU/mL (0.34-5.60)
[2023-04-01 12:01] LABS: ESTIMATED AVERAGE GLUCOSE 128 mg/dL (70-100); HEMOGLOBIN A1c% 6.1 % (4.27-6.07)
== END 2023-04-01 10:16 | disposition home or self-care (01) ==
LOC: LAB 10:15
PROVIDERS: ATTEND Internal Medicine
DX: E11.42 Type 2 diabetes mellitus with diabetic polyneuropathy (principal); R94.6 Abnormal results of thyroid function studies
CPT/HCPCS: 36415; 80048; 83036; 84439; 84443; 84481

== ENCOUNTER 2023-05-13 12:49 | Outpatient (CLI) | payer MEDICAID ==
[2023-05-13 13:17] LABS: ALBUMIN 4.1 g/dL (3.2-5.5); ALBUMIN/GLOBULIN RATIO 1.6 (1.0-2.2); ALKALINE PHOSPHATASE 65 IU/L (42-121); ALT ALANINE AMINOTRANSFERASE 20 IU/L (10-60); AST ASPARTATE AMINOTRANSFERASE 14 IU/L (10-42); BILIRUBIN,TOTAL 0.5 mg/dL (0.2-1.0); BUN - BLOOD UREA NITROGEN 19 mg/dL (6-20); CALCIUM 9.2 mg/dL (8.5-10.3); CARBON DIOXIDE - CO2 28 mmol/L (21-32); CHLORIDE 108 mmol/L (101-111); CHOLESTEROL 111 mg/dL; CREATININE 1.1 mg/dL (0.6-1.3); GFR - MDRD 69 (>89); GLUCOSE 110 mg/dL (74-104); HDL CHOLESTEROL 37 mg/dL; LDL CHOLESTEROL,CALCULATED 46 mg/dL; LDL/HDL RATIO 1.2 (<3.6); POTASSIUM 4.2 mmol/L (3.5-4.5); SODIUM 140 mmol/L (135-145); TOTAL PROTEIN 6.7 g/dL (6.4-8.9); TRIGLYCERIDES 138 mg/dL (48-352); VLDL CHOLESTEROL 28 mg/dL
== END 2023-05-13 12:50 | disposition home or self-care (01) ==
LOC: LAB 12:49
PROVIDERS: ATTEND Internal Medicine Cardiovascular Disease
DX: E78.00 Pure hypercholesterolemia, unspecified (principal)
CPT/HCPCS: 36415; 80053; 80061; 83721

== ENCOUNTER 2023-11-18 10:33 | Outpatient (CLI) | payer MEDICAID ==
[2023-11-18 10:58] LABS: CALCIUM 9.3 mg/dL (8.5-10.3); CREATININE 1.2 mg/dL (0.6-1.3); POTASSIUM 4.1 mmol/L (3.5-4.5); URIC ACID 5.2 mg/dL (4.4-7.6)
[2023-11-18 11:15] LABS: THYROID STIMULATING HORMONE 1.1 uIU/mL (0.34-5.60)
[2023-11-18 12:15] LABS: ESTIMATED AVERAGE GLUCOSE 111 mg/dL (70-100); HEMOGLOBIN A1c% 5.5 % (4.27-6.07)
== END 2023-11-18 10:34 | disposition home or self-care (01) ==
LOC: LAB 10:33
PROVIDERS: ATTEND Internal Medicine
DX: E04.1 Nontoxic single thyroid nodule (principal); E11.40 Type 2 diabetes mellitus with diabetic neuropathy, unspecified; Z12.5 Encounter for screening for malignant neoplasm of prostate; M10.9 Gout, unspecified
CPT/HCPCS: 36415; 80048; 83036; 84153; 84439; 84443; 84550